=== PATIENT | male | born 1990 | race Caucasian/White ===

== ENCOUNTER 2018-05-12 19:17 | Emergency (ER) | payer SELFPAY ==
[2018-05-12 19:41] VITALS: BP 120/55; PULSE 73; TEMP 98.3; BMI 19.3
--- NOTE | 2018-05-12 20:06 | PDOC ---
History of Present Illness - General Chief Complaint: Pain Stated Complaint: PAIN, ACUTE - History of Present Illness Initial Comments: 27-year-old male without comorbidities presents for evaluation of left-sided lower back pain without any precipitating traumatic event. He was not lifting he did not fall. Points to the area of the left sacroiliac joint as the area of his discomfort. There is no radiation of symptoms. 05/12/18 20:05 Past History - Past Medical History Allergies/Adverse Reactions: Allergies Allergy/AdvReac Type Severity Reaction Status Date / Time No Known Allergies Allergy Verified 05/12/18 19:37 Home Medications: Ambulatory Orders Cyclobenzaprine HCl [Flexeril 10 mg] 10 mg PO HS PRN #10 tablet 05/12/18 Cyclobenzaprine HCl [Flexeril 10 mg] 10 mg PO HS PRN #10 tablet 05/12/18 COPD: No - Suicide/Smoking/Psychosocial Hx Smoking History: Never smoked Have you smoked in the past 12 months: No Information on smoking cessation initiated: No Hx Alcohol Use: No Drug/Substance Use Hx: No Substance Use Type: None Review of Systems - Review of Systems Musculoskeletal: Yes: See HPI, Back Pain All Other Systems: Reviewed and Negative *Physical Exam - Vital Signs Last Vital Signs Temp Pulse Resp BP Pulse Ox 98.3 F 73 18 120/55 100 05/12/18 19:32 05/12/18 19:32 05/12/18 19:32 05/12/18 19:32 05/12/18 19:32 - Physical Exam Comments: Lumbar spine skin color and temperature are normal range of motion is full and nonpainful. He has 5 out of 5 strength in bilateral lower extremities. No pallor lumbar musculature spasm there is point tenderness at the left sacroiliac joint. No other areas of tenderness. Negative straight leg raise test. 05/12/18 20:05 ED Treatment Course - RADIOLOGY Radiology Studies Ordered: Category Date Time Status PELVIS [RAD] Stat Radiology 05/12/18 20:04 Ordered SPINE-LUMBAR SACRAL [RAD] Stat Radiology 05/12/18 20:02 Ordered Medical Decision Making - Medical Decision Making Lumbosacral spine x-rays show straightening of the lumbar the lordosis do not appreciate an acute fracture. I will treat him with Flexeril and spine surgery follow-up 05/12/18 21:10 *DC/Admit/Observation/Transfer Diagnosis at time of Disposition: Lumbar strain - Discharge Dispostion Disposition: HOME Condition at time of disposition: Stable Decision to Admit order: No - Referrals Referrals: Donny Isbell MD [Staff Physician] - - Patient Instructions Printed Discharge Instructions: Low Back Pain Additional Instructions: regrese a la david de emergencia si los sntomas empeoran o no se resuelven. Tengo phu tensin en la espalda baja. Le recet un relajante muscular que le ayudar con munoz malestar en phu tableta antes de acostarse. Por favor, nahomi un seguimiento con la ciruga de columna vertebral en 1-2 freedman para phu evaluacin adicional y opciones de tratamiento. Print Language: NIGERIEN - Post Discharge Activity
[2018-05-12] MEDS ORDERED: KETOROLAC TROMETHAMINE 60 MG/2 ML VIAL IM ONE (20:45)
[2018-05-12] MEDS ORDERED: KETOROLAC TROMETHAMINE 60 MG/2 ML VIAL ONE (20:46)
== END 2018-05-12 21:25 | disposition home or self-care (01) ==
LOC: JERFT 19:17
PROC: 3E0233Z Introduction of Anti-inflammatory into Muscle, Percutaneous Approach (ICD-10-PCS; principal; 2018-05-12)
DX: S39.012A Strain of muscle, fascia and tendon of lower back, initial encounter (principal); X58.XXXA Exposure to other specified factors, initial encounter; Y93.9 Activity, unspecified; Y92.9 Unspecified place or not applicable
CPT/HCPCS: 72100-TC-FY; 72170-TC-FY; 99281-25

== ENCOUNTER 2019-07-14 18:23 | Emergency (ER) | payer OTHER ==
[2019-07-14 18:52] VITALS: BP 111/47; PULSE 63; TEMP 98.5; BMI 21.5
[2019-07-14] MEDS ORDERED: CYCLOBENZAPRINE HCL 10 MG TABLET (FP) PO ONE (18:53)
[2019-07-14] MEDS ORDERED: KETOROLAC TROMETHAMINE 60 MG/2 ML VIAL IM ONE (18:53)
--- NOTE | 2019-07-14 18:53 | PDOC ---
Rapid Medical Evaluation Chief Complaint: Back Pain Time Seen by Provider: 07/14/19 18:47 Medical Evaluation: Allergies Allergy/AdvReac Type Severity Reaction Status Date / Time No Known Allergies Allergy Verified 05/12/18 19:37 07/14/19 18:48 Pt c/o: low back pain x 3 days, back injury x 8 months ago gets PT, no other complaints Pt on brief exam: no midline tenderness, mild lumbar tenderness leisa, no sciatica tenderness Pt ordered for: flexeril and toradol Pt to proceed to the ED Discharge Disposition - Diagnosis Lumbar pain - Referrals - Patient Instructions - Post Discharge Activity
[2019-07-14] MEDS ORDERED: METHOCARBAMOL 750 MG TABLET PO ONE (19:09)
[2019-07-14] MEDS ORDERED: KETOROLAC TROMETHAMINE 60 MG/2 ML VIAL ONE (19:11)
[2019-07-14] MEDS ORDERED: METHOCARBAMOL 500 MG TABLET ONE (19:12)
--- NOTE | 2019-07-14 19:34 | PDOC ---
History of Present Illness - General Chief Complaint: Back Pain Stated Complaint: BACK PAIN Time Seen by Provider: 07/14/19 18:47 History Source: Patient, Family Exam Limitations: Language Barrier Past History - Past Medical History Allergies/Adverse Reactions: Allergies Allergy/AdvReac Type Severity Reaction Status Date / Time No Known Allergies Allergy Verified 07/14/19 18:56 Home Medications: Ambulatory Orders Cyclobenzaprine HCl [Flexeril 10 mg] 10 mg PO HS PRN #10 tablet 05/12/18 Cyclobenzaprine HCl [Flexeril 10 mg] 10 mg PO HS PRN #10 tablet 05/12/18 Methocarbamol [Robaxin-750] 1,500 mg PO Q6H PRN #24 tablet 07/14/19 COPD: No - Surgical History Abdominal Surgery: No - Immunization History Immunization Up to Date: Yes - Psycho Social/Smoking Cessation Hx Smoking History: Never smoked Have you smoked in the past 12 months: No Hx Alcohol Use: No Drug/Substance Use Hx: No Substance Use Type: None *Physical Exam - Vital Signs Last Vital Signs Temp Pulse Resp BP Pulse Ox 98.5 F 63 18 111/47 L 100 07/14/19 18:49 07/14/19 18:49 07/14/19 18:49 07/14/19 18:49 07/14/19 18:49 - Physical Exam General Appearance: No: Apparent Distress Respiratory/Chest: positive: Lungs Clear, Normal Breath Sounds. negative: Respiratory Distress Cardiovascular: positive: Regular Rhythm, Regular Rate, S1, S2. negative: Murmur Gastrointestinal/Abdominal: positive: Normal Bowel Sounds, Soft. negative: Tender, Distended, Guarding, Rebound Musculoskeletal: positive: Muscle Spasm (along L thoracic and lumbar paraspinal region). negative: CVA Tenderness, Vertebral Tenderness Neurologic: positive: Alert, Normal Mood/Affect, Motor Strength 5/5, Other ( normal gait) ED Treatment Course - Medications Given in the ED: ED Medications Discontinued Medications Generic Name Dose Route Start Last Admin Trade Name Freq PRN Reason Stop Dose Admin Cyclobenzaprine HCl 5 mg 07/14/19 18:53 07/14/19 19:24 Flexeril - PO 07/14/19 18:54 Not Given ONCE ONE Ketorolac Tromethamine 60 mg 07/14/19 18:53 07/14/19 19:22 Toradol Injection - IM 07/14/19 18:54 60 mg ONCE ONE Administration Methocarbamol 1,500 mg 07/14/19 19:09 07/14/19 19:22 Robaxin - PO 07/14/19 19:10 1,500 mg ONCE ONE Administration Medical Decision Making - Medical Decision Making 29 y/o M with no sig pmh presents with acute on chronic LBP x 3 days. Mentions injured his back in Oct 2018 at work when something heavy fell on his back. Since then patient has been undergoing PT. However, states pain got suddenly exacerbated 3 days ago. Denies any trauma or any heavy lifting. Patient saw his primary care doctor 4 days ago for general evaluation and was given naproxen for pain. Patient last took naproxen last night but did not feel much improvement with pain. Denies any fever, shortness of breath, chest pain, abdominal pain, nausea, vomiting, urinary complaints, weakness of extremities, bowel or bladder incontinence, numbness around the groin. Unclear if patient had any MRI imaging done of the spine recently. Patient with muscle spasms on exam Given Toradol and Robaxin, will reassess 07/14/19 19:30 Patient feeling better on reassessment Will discharge 07/14/19 19:37 Discharge - Discharge Information Problems reviewed: Yes Clinical Impression/Diagnosis: Back muscle spasm Condition: Improved Disposition: HOME - Admission No - Additional Discharge Information Prescriptions: Methocarbamol [Robaxin-750] 1,500 mg PO Q6H PRN #24 tablet PRN Reason: Muscle Spasms Prescription Drug Monitoring Program (I-STOP) results: I-STOP not reviewed - Follow up/Referral - Patient Discharge Instructions Patient Printed Discharge Instructions: DI for Back Spasm Additional Instructions: Thank you for choosing [facility]. It was a pleasure taking care of you. You may take either naproxen or Motrin as needed for pain. Take medication with food Take Robaxin as directed for muscle spasms Also recommend warm compresses and Epsom salt baths for your spasms Continue follow-up with your regular doctor regarding her back. Consider getting an MRI as an outpatient for further evaluation of your back pain Return to the Emergency Department if your symptoms worsen or persist, you have fever, shortness of breath, chest pain, severe abdominal pain, vomiting, weakness of extremities, changes in walking, unable to control bowel or bladder movements or other concerning symptoms. Maru puente elegir el [facility]. Fue un placer cuidar de ti. Puede joyce naproxeno o Motrin segn sea necesario para el dolor. Joyce medicamentos con comida. [place] Robaxin segn las indicaciones para los espasmos musculares. Vladimir recomiende compresas tibias y baos de jozef de Epsom para maxwell espasmos Contine el seguimiento con munoz mdico habitual con respecto a munoz espalda. Considere hacerse phu resonancia magntica juliana paciente ambulatorio para phu evaluacin adicional de munoz dolor de espalda Regrese al departamento de emergencias si maxwell sntomas empeoran o persisten, tiene fiebre, falta de aliento, dolor en el pecho, dolor abdominal intenso, vmitos, debilidad de las extremidades, cambios en la decembera, incapacidad para controlar los movimientos intestinales o de la vejiga u otros sntomas preocupantes. Print Language: KHMER - Post Discharge Activity
== END 2019-07-14 19:43 | disposition home or self-care (01) ==
LOC: JERFT 18:23
PROC: 3E0233Z Introduction of Anti-inflammatory into Muscle, Percutaneous Approach (ICD-10-PCS; principal; 2019-07-14)
DX: M62.830 Muscle spasm of back (principal)
CPT/HCPCS: 99282-25

== ENCOUNTER 2024-01-07 20:29 | Emergency (ER) | payer OTHER ==
[2024-01-07 20:36] VITALS: BP 122/50; PULSE 96; RESP 18; TEMP 98.2; BMI 24.3
[2024-01-07] MEDS ORDERED: ONDANSETRON 4 MG/2 ML VIAL ONE (20:50)
[2024-01-07] MEDS ORDERED: FAMOTIDINE 20 MG/50 ML IVPB 20 MG/50 ML MG IVPB ONE (20:51)
[2024-01-07] MEDS: FAMOTIDINE 20 MG/50 ML IVPB 20 MG/50 ML MG IVPB ONE (21:13)
[2024-01-07] MEDS: ONDANSETRON 4 MG/2 ML VIAL IVPUSH ONE (21:13)
[2024-01-07] MEDS: LACTATED RINGERS SOLUTION 1,000 ML/1,000 ML INFUS.BAG IV SCH (21:13)
[2024-01-07 21:23] LABS: BASO % 0.1 % (0-2.0); EOS % 0.1 % (0-4.5); HEMATOCRIT 46.2 % (35.4-49); HEMOGLOBIN 15.7 GM/dL (11.7-16.9); LYMPH % 6.1 % (8-40); MCH 31.3 pg (25.7-33.7); MEAN CELL VOLUME 92.1 fl (80-96); MEAN PLT VOLUME 8.4 fl (7.5-11.1); MONO % 17.1 % (3.8-10.2); NEUT % 76.6 % (42.8-82.8); PLATELET COUNT 328 10^3/uL (134-434); RBC 5.02 M/mm3 (4.00-5.60); RDW 12.9 % (11.9-15.9); WHITE BLOOD COUNT 9.9 K/mm3 (4.0-10.0)
[2024-01-07 21:43] LABS: POTASSIUM 3.9 mmol/L (3.5-5.1)
[2024-01-07 21:46] LABS: BLOOD UREA NITROGEN 13.3 mg/dL (7-18); CALCIUM 8.8 mg/dL (8.5-10.1); MAGNESIUM 1.9 mg/dL (1.8-2.4)
[2024-01-07 21:47] LABS: ALBUMIN 4.1 g/dl (3.4-5.0)
[2024-01-07 21:49] LABS: PHOSPHOROUS 4.4 mg/dL (2.5-4.9)
[2024-01-07 21:51] LABS: BILIRUBIN,TOTAL 0.8 mg/dL (0.2-1)
== END 2024-01-08 00:28 | disposition home or self-care (01) ==
LOC: JER 20:29
PROC: 3E033GC Introduction of Other Therapeutic Substance into Peripheral Vein, Percutaneous Approach (ICD-10-PCS; principal; 2024-01-07)
PROC: 3E033GC Introduction of Other Therapeutic Substance into Peripheral Vein, Percutaneous Approach (ICD-10-PCS; 2024-01-07)
DX: R19.7 Diarrhea, unspecified (principal); R11.2 Nausea with vomiting, unspecified; Z20.822 Contact with and (suspected) exposure to COVID-19
CPT/HCPCS: 0241U-QW; 36415; 80053; 83690; 83735; 84100; 85025; 93005; 93010; 99284-25